=== PATIENT | male | born 1975 | race Asian ===

== ENCOUNTER → 2018-01-13 | Outpatient (CLI) | payer OTHER | END | disposition home or self-care (01) | LOC: KCIC 12:00 | DX: R76.11 Nonspecific reaction to tuberculin skin test without active tuberculosis (principal); R91.8 Other nonspecific abnormal finding of lung field; Z86.11 Personal history of tuberculosis | CPT/HCPCS: 71045 ==

== ENCOUNTER → 2018-04-07 | Outpatient (CLI) | payer OTHER | END | disposition home or self-care (01) | LOC: KCIC 10:51 | DX: Z20.1 Contact with and (suspected) exposure to tuberculosis (principal) | CPT/HCPCS: 71045 ==

== ENCOUNTER 2020-03-24 05:59 | Emergency (ER) | payer BC, OTHER ==
[~2020-03-24] VITALS: Ht 152.4 cm; Wt 91.3 kg
--- NOTE | 2020-03-24 07:09 | PHYS DOC ---
Past Medical History Past Medical History: No Pertinent History Past Surgical History: No Surgical History Smoking Status: Never Smoker Alcohol Use: None General Adult EDM: Chief Complaint: GENERALIZED BODY ACHES HPI: HPI: Patient is a 44-year-old male who presents with a couple day history of general malaise and myalgias. Today he developed a fever and decided to come to the emergency department for further evaluation. He denies any chest pain shortness of breath or dyspnea on exertion. 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 He denies any hemoptysis. He also states he has a rash on his back that seems to have come up over the last day or so. [] Review of Systems: Review of Systems: Constitutional: Per HPI [] Eyes: Denies change in visual acuity. [] HENT: Denies nasal congestion or sore throat. [] Respiratory: Denies cough or shortness of breath. [] Cardiovascular: Denies chest pain or edema. [] GI: Denies abdominal pain, nausea, vomiting, bloody stools or diarrhea. [] : [] Musculoskeletal: Reports myalgias and arthralgias [] Integument: Denies rash. [] Neurologic: Denies headache, focal weakness or sensory changes. [] Endocrine: Denies polyuria or polydipsia. [] Lymphatic: Denies swollen glands. [] Psychiatric: Denies depression or anxiety. [] Heart Score: Risk Factors: Risk Factors: DM, Current or recent (<one month) smoker, HTN, HLP, family history of CAD, obesity. Risk Scores: Score 0 - 3: 2.5% MACE over next 6 weeks - Discharge Home Score 4 - 6: 20.3% MACE over next 6 weeks - Admit for Clinical Observation Score 7 - 10: 72.7% MACE over next 6 weeks - Early Invasive Strategies Current Medications: Current Medications Medications (Trade) Dose Ordered Sig/[facility] Start Time Stop Time Status Last Admin Dose Admin Ketorolac Tromethamine (Toradol 30mg Vial) 30 mg 1X ONCE 03/24/20 07:15 03/24/20 07:16 Allergies: Allergies: Allergies Coded Allergies Type Severity Reaction Last Updated Verified No Known Drug Allergies 03/24/20 No Physical Exam: PE: Constitutional: Well developed, well nourished, no acute distress, but appears acutely ill [] HENT: Normocephalic, atraumatic, bilateral external ears normal, oropharynx moist, no oral exudates, nose normal. [] Eyes: PERRLA, EOMI, conjunctiva normal, no discharge. [] Neck: Normal range of motion, no tenderness, supple, no stridor. [] Cardiovascular:Heart rate regular rhythm, no murmur [] Lungs & Thorax: Bilateral breath sounds clear to auscultation [] Abdomen: Bowel sounds normal, soft, no tenderness, no masses, no pulsatile masses. [] Skin: Urticarial type rash on his back [] Back: No tenderness, no CVA tenderness. [] Extremities: No tenderness, no cyanosis, no clubbing, ROM intact, no edema. [] Neurologic: Alert and oriented X 3, normal motor function, normal sensory function, no focal deficits noted. [] Psychologic: Affect normal, judgement normal, mood normal. [] Current Patient Data: Vital Signs: Vital Signs Date Time Temp Pulse Resp B/P (MAP) Pulse Ox O2 Delivery O2 Flow Rate FiO2 03/24/20 06:45 102.6 108 23 145/86 (105) 97 102.6 03/24/20 06:15 Room Air EKG: EKG: [] Radiology/Procedures: Radiology/Procedures: []REASON: cough PROCEDURE: CHEST AP ONLY AP chest x-ray HISTORY: Cough. FINDINGS: Heart size upper limits normal may be magnified by the portable technique. Mediastinal silhouette is normal. Thin linear scarring or atelectasis at the lingula. There is also indistinct retrocardiac left lower lobe opacity. Right lung is clear. No pleural effusions or pneumothorax. Bones are unremarkable. IMPRESSION: Retrocardiac indistinct left lower lobe opacity could represent atelectasis or developing pneumonia. Thin linear atelectasis or scarring at the lingula is also present. Course & Med Decision Making: Course & Med Decision Making Pertinent Labs and Imaging studies reviewed. (See chart for details) [ED course: Evaluation reveals a 44-year-old male with 102 fever and body aches. Chest x-ray shows a retrocardiac infiltrate consistent with pneumonia. Aramis ko, given his job in a plant I suspect he may have COVID I will go ahead and treat him for bacterial pneumonia with the idea that he may also have COVID-19.] Mook Disclaimer: Mook Disclaimer: This electronic medical record was generated, in whole or in part, using a voice recognition dictation system. Departure Departure Impression: Primary Impression: Pneumonia Qualified Codes: J13 - Pneumonia due to Streptococcus pneumoniae Additional Impression: Suspected COVID-19 virus infection Disposition: 01 HOME, SELF-CARE Condition: STABLE Referrals: NO PCP (PCP) Patient Instructions: Pneumomediastinum Additional Instructions: Thank you for visiting [facility]. We appreciate you trusting us with your care. If any additional problems come up don't hesitate to return to visit us. Please follow up with your primary care provider so they can plan additional care if needed and know about the problem that you had. If symptoms worsen come back to the Emergency Department. Any concerning symptoms that start such as chest pain, shortness of air, weakness or numbness on one side of the body, running high fevers or any other concerning symptoms return to the ER. You have a viral syndrome which may include symptoms like muscle aches, fevers, chills, runny nose, cough, sneezing, sore throat, vomiting, or diarrhea. One of the potential viruses that you may have is SARS-CoV-2, the virus that causes COVID-19, also known as the Coronavirus. You are just as likely to have a different viral infection such as the common cold, flu, etc. Most patients with the Coronavirus have mild symptoms and recover on their own. Resting, staying hydrated, and sleep from known cases can be helpful. As of todays visit, you are well enough to go home and treat your symptoms with oral fluids and over the counter medications. Coronavirus testing is not performed on most people with mild symptoms who are being discharged from the emergency department. If Coronavirus testing was performed the results will not be available for poss ibly up to 2-3 days. If your result is positive you will be contacted. Please follow the following precautions at home: 1) Stay home except to get medical care. 2) As advised by the CDC we recommend you stay in your home and minimize contact with other people. We do not want you to spread the infection. 3) Those who are older or have significant medical issues may have more severe symptoms from this infection. We recommend self-isolation,FOR AT LEAST 7 DAYS after your 1st day of symptoms. AFTER you feel better please wait AT LEAST ANOTHER WEEK before returning to regular activities and being around other people! 4) IF you become sicker and have difficulty breathing, chest pain, unable to eat/drink, severe vomiting, diarrhea, or weakness you may need to return to the Emergency Department. 5) You should restrict activities outside your home, except for getting medical care. DO NOT go to work, school, or public areas. Avoid using public transportation, ride sharing, or taxis. 6) Separate yourself from other people in your home. You should use a separate bathroom if possible. 7) Avoid sharing personal household items such as dishes, cups, eating utensils, towels, etc. 8) Clean all high touch surfaces every day (door knobs, counter tops, etc). Use a household cleaning spray or wipe per label instructions. 9) Clean your hands often. Wash your hands with soap and water for at least 20 seconds. 10) Cover your mouth and nose with a tissue when you cough or sneeze. 11) Throw used tissues in a trash can and immediately wash your hands. For additional resources please visit the CDC website or the [place] [facility] ([phone]). Scripts Azithromycin (ZITHROMAX) 250 Mg Tablet 1 PKG PO UD for bronchitis, #6 TAB Take 2 tablets on day 1 and then 1 tablet each day for the next 4 days as directed Prov: HECTOR FLORES DO 03/24/20 Justicifation of Admission Dx: Justifications for Admission: Justification of Admission Dx: N/A HECTOR FLORES DO Mar 24, 2020 07:09
[2020-03-24] MEDS ORDERED: KETOROLAC 30 MG/ML VIAL. IV ONE (07:15)
--- NOTE | 2020-03-24 07:28 | RAD ---
AP chest x-ray HISTORY: Cough. FINDINGS: Heart size upper limits normal may be magnified by the portable technique. Mediastinal silhouette is normal. Thin linear scarring or atelectasis at the lingula. There is also indistinct retrocardiac left lower lobe opacity. Right lung is clear. No pleural effusions or pneumothorax. Bones are unremarkable. IMPRESSION: Retrocardiac indistinct left lower lobe opacity could represent atelectasis or developing pneumonia. Thin linear atelectasis or scarring at the lingula is also present. Electronically signed by: Derek East MD (03/24/2020 7:25 AM) [id number]
[2020-03-24 07:32] LABS: CALCIUM 8.5 mg/dL (8.5-10.1); CREATININE 1.1 mg/dL (0.7-1.3); GFR 73.4; POTASSIUM 3.3 mmol/L (3.5-5.1)
[2020-03-24 07:35] LABS: ALBUMIN 3.2 g/dL (3.4-5.0); ALBUMIN/GLOBULIN RATIO 0.7 (1.0-1.7); MAGNESIUM 1.7 mg/dL (1.8-2.4); TOTAL PROTEIN 7.8 g/dL (6.4-8.2)
[2020-03-24 07:39] LABS: BASO % 0 % (0-3); EOS % 0 % (0-3); HEMATOCRIT 42.6 % (39.0-53.0); LYMPH # 1.2 x10^3/uL (1.0-4.8); LYMPH % 13 % (24-48); MEAN CORPUSCULAR HEMOGLOBIN 30 pg (25-35); MEAN CORPUSCULAR HGB CONC 35 g/dL (31-37); MEAN CORPUSCULAR VOLUME 85 fL (79-100); MONO # 1.5 x10^3/uL (0.0-1.1); MONO % 16 % (0-9); NEUT # 6.5 x10^3/uL (1.8-7.7); NEUT % 71 % (31-73); PLATELET COUNT 86 x10^3/uL (140-400); RED CELL DISTRIBUTION WIDTH 12.9 % (11.5-14.5); WHITE BLOOD COUNT 9.2 x10^3/uL (4.0-11.0)
[2020-03-24] MEDS ORDERED: cefTRIAXone IV Push 1 GM VIAL. IVP ONE (07:45)
[2020-03-24] MEDS ORDERED: IV NORMAL SALINE 1000ML BAG 1,000 ML IV ONE (07:45)
[2020-03-24] MEDS ORDERED: AZIT250T PO (08:21)
[2020-03-24 09:15] VITALS: BP 125/69
== END 2020-03-24 09:58 | disposition home or self-care (01) ==
LOC: ER 05:59
DX: J18.9 Pneumonia, unspecified organism (principal); Z20.828 Contact with and (suspected) exposure to other viral communicable diseases; R50.9 Fever, unspecified
CPT/HCPCS: 36415; 71045; 80053; 83735; 85025; 87040; 96374; 96375; 99285; J0696; J1885; J7030; U0003